=== PATIENT | female | born 1980 | race Caucasian/White ===

== ENCOUNTER → 2024-06-05 10:47 | Outpatient (REF) | payer BC, SELFPAY | LOC: WDC 10:47 | PROVIDERS: ATTENDING PHYSICIAN Physician Assistant | DX: Z12.31 Encounter for screening mammogram for malignant neoplasm of breast (principal) | CPT/HCPCS: 77063; 77067 ==

== ENCOUNTER → 2025-05-04 10:33 | Outpatient (REF) | payer OTHER, SELFPAY | LOC: RAD 10:33 | PROVIDERS: FAMILY PHYSICIAN Nurse Practitioner Family | DX: M79.602 Pain in left arm (principal) | CPT/HCPCS: 76882 ==

== ENCOUNTER → 2025-06-10 10:47 | Outpatient (REF) | payer OTHER, SELFPAY | LOC: WDC 10:47 | PROVIDERS: ATTENDING PHYSICIAN Obstetrics & Gynecology Gynecology; FAMILY PHYSICIAN Nurse Practitioner Family | DX: Z12.31 Encounter for screening mammogram for malignant neoplasm of breast (principal) | CPT/HCPCS: 77063; 77067 ==